=== PATIENT | female | born 1955 | race Caucasian/White ===

== ENCOUNTER → 2020-04-19 | Outpatient (CLI) | payer MEDICARE | END | disposition home or self-care (01) | LOC: CFH 10:16 | PROVIDERS: ATTEND Family Medicine | DX: R92.0 Mammographic microcalcification found on diagnostic imaging of breast (principal) | CPT/HCPCS: 77065 ==

== ENCOUNTER 2020-05-24 09:28 | Outpatient (CLI) | payer MEDICARE | END 2020-05-24 23:59 | disposition home or self-care (01) | LOC: CFH 09:28 | PROVIDERS: ATTEND Nurse Practitioner Family | DX: Z02.9 Encounter for administrative examinations, unspecified (principal) | CPT/HCPCS: 19081 ==